=== PATIENT | female | born 1940 | race Caucasian/White ===

== ENCOUNTER 2016-07-24 17:50 | Inpatient (IN) | payer MEDICARE, BC ==
[~2016-07-24] VITALS: Ht 160 cm; Wt 59.9 kg
[2016-07-24] MEDS ORDERED: DEXTROSE 50% WATER 50ML SYRINGE IV PRN ×2 (19:00→20:15)
[2016-07-24 20:00] VITALS: BP 123/52
[2016-07-24] MEDS: ROPINIROLE HCL 1MG TABLET PO SCH (20:19)
[2016-07-24] MEDS: HYDROCORTISONE 2.5% RECTAL CREAM 30GM PR SCH (21:00)
[2016-07-24] MEDS: ONDANSETRON HCL 4MG TABLET PO PRN (21:37)
[2016-07-24] MEDS: GABAPENTIN 300MG CAPSULE PO SCH (21:53)
[2016-07-24] MEDS: CARVEDILOL 3.125 MG TABLET PO SCH (21:53)
[2016-07-24] MEDS: ATORVASTATIN CALCIUM 40MG TABLET PO SCH (21:54)
[2016-07-24] MEDS: BLOOD SUGAR DIAGNOSTIC STRIP TEST SCH (21:55)
[2016-07-24] MEDS: TEMAZEPAM 15MG CAPSULE PO PRN (21:56)
[2016-07-24] MEDS: INSULIN LISPRO 100 UNITS/ML SUBCUT SCH (22:12)
[2016-07-25 05:57] LABS: BASOPHILS % 0.4 % (0.0-2.0); EOSINOPHILS % 1.4 % (0.0-5.0); HEMATOCRIT. 31.8 % (36.0-48.0); HEMOGLOBIN. 10.7 g/dL (12.0-16.0); LYMPHOCYTES % 18.3 % (20.0-50.0); MEAN CORPUSCULAR HEMOGLOBIN 33.1 pg (28.0-32.0); MEAN CORPUSCULAR VOLUME 98.3 fL (81.0-99.0); MEAN PLATELET VOLUME 9.7 fl (7.4-10.4); MONOCYTES % 10.8 % (2.0-8.0); NEUTROPHILS % 69.1 % (40.0-76.0); PLATELET 152 x1000/uL (130-400); RED BLOOD CELL COUNT 3.23 mill/uL (4.2-5.4)
[2016-07-25] MEDS: PANTOPRAZOLE 40MG DR TABLET PO SCH (07:15)
[2016-07-25] MEDS: BLOOD SUGAR DIAGNOSTIC STRIP TEST SCH ×4 (07:17→21:09)
[2016-07-25] MEDS: INSULIN LISPRO 100 UNITS/ML SUBCUT SCH ×4 (07:22→20:52)
[2016-07-25 08:00] VITALS: BP 90/58
[2016-07-25] MEDS: DOCUSATE SODIUM 100MG CAPSULE PO SCH ×2 (09:00→16:27)
[2016-07-25] MEDS: CARVEDILOL 3.125 MG TABLET PO SCH ×2 (09:00→21:00)
[2016-07-25 09:04] LABS: VITAMIN B12 SERUM 1900 pg/mL (211-911)
[2016-07-25] MEDS: CLOPIDOGREL 75MG TABLET PO SCH (09:31)
[2016-07-25] MEDS: DULOXETINE HCL 60MG DR CAPSULE PO SCH (09:31)
[2016-07-25] MEDS: ASPIRIN 81MG TABLET PO SCH (09:31)
[2016-07-25] MEDS: HEPARIN 5000 UNITS/ML VIAL SUBCUT SCH ×2 (09:34→20:45)
[2016-07-25] MEDS ORDERED: GLIMEPIRIDE 1MG TABLET PO SCH (10:00)
[2016-07-25] MEDS: HYDROCORTISONE 2.5% RECTAL CREAM 30GM PR SCH ×2 (10:43→20:53)
[2016-07-25] MEDS: HYDROCODONE/ACETAMINOPHEN 5/325MG TABLET PO PRN (13:10)
[2016-07-25 14:25] VITALS: BP_SYST 100; BP_SYST 113; BP_SYST 117; BP_DIAS 65; BP_DIAS 78
[2016-07-25] MEDS: ONDANSETRON HCL 4MG TABLET PO PRN (18:59)
[2016-07-25] MEDS: ROPINIROLE HCL 1MG TABLET PO SCH (19:49)
[2016-07-25 20:00] VITALS: BP_SYST 103; BP_SYST 93; BP_DIAS 62; BP_DIAS 74
[2016-07-25] MEDS ORDERED: CALC-769 PO (20:25)
[2016-07-25] MEDS ORDERED: ALEN70TA3 PO (20:25)
[2016-07-25] MEDS ORDERED: CLOP75TA33 PO (20:25)
[2016-07-25] MEDS ORDERED: GABA-290 PO (20:25)
[2016-07-25] MEDS ORDERED: SPIR25TA4 PO (20:25)
[2016-07-25] MEDS ORDERED: MULT1TAB11 PO (20:25)
[2016-07-25] MEDS ORDERED: BACL-141 PO (20:25)
[2016-07-25] MEDS ORDERED: LISI-186 PO (20:25)
[2016-07-25] MEDS ORDERED: FURO-151 PO (20:25)
[2016-07-25] MEDS ORDERED: COR6 PO (20:25)
[2016-07-25] MEDS ORDERED: DULO60CA44 PO (20:25)
[2016-07-25] MEDS ORDERED: METF500T4 PO (20:25)
[2016-07-25] MEDS ORDERED: ASPI-1159 PO (20:25)
[2016-07-25] MEDS ORDERED: SODI15OR4 MT (20:25)
[2016-07-25] MEDS ORDERED: ATOR80TA PO (20:25)
[2016-07-25] MEDS ORDERED: HYDR-523 PO (20:25)
[2016-07-25] MEDS ORDERED: TRAM50TA3 PO (20:25)
[2016-07-25] MEDS: MAGNESIUM/ALUMINUM HYDROXIDE/SIMETHICONE 30ML UDC PO PRN (20:43)
[2016-07-25] MEDS: GABAPENTIN 300MG CAPSULE PO SCH (20:44)
[2016-07-25] MEDS: ATORVASTATIN CALCIUM 40MG TABLET PO SCH (20:45)
[2016-07-26] MEDS: TEMAZEPAM 15MG CAPSULE PO PRN (00:24)
[2016-07-26] MEDS: ACETAMINOPHEN 650MG/20.3ML UDC PO PRN ×2 (04:31→13:42)
[2016-07-26] MEDS: BLOOD SUGAR DIAGNOSTIC STRIP TEST SCH ×4 (06:29→21:28)
[2016-07-26] MEDS: GLIMEPIRIDE 1MG TABLET PO SCH (06:30)
[2016-07-26] MEDS: PANTOPRAZOLE 40MG DR TABLET PO SCH (06:30)
[2016-07-26] MEDS: INSULIN LISPRO 100 UNITS/ML SUBCUT SCH ×4 (06:34→21:17)
[2016-07-26 08:00] VITALS: BP 102/64
[2016-07-26] MEDS: CARVEDILOL 3.125 MG TABLET PO SCH ×2 (08:47→21:00)
[2016-07-26] MEDS: DOCUSATE SODIUM 100MG CAPSULE PO SCH (08:48)
[2016-07-26] MEDS: ASPIRIN 81MG TABLET PO SCH (08:48)
[2016-07-26] MEDS: DULOXETINE HCL 60MG DR CAPSULE PO SCH (08:48)
[2016-07-26] MEDS: CLOPIDOGREL 75MG TABLET PO SCH (08:48)
[2016-07-26] MEDS: HEPARIN 5000 UNITS/ML VIAL SUBCUT SCH ×2 (08:49→21:16)
[2016-07-26] MEDS: HYDROCORTISONE 2.5% RECTAL CREAM 30GM PR SCH ×2 (09:00→21:14)
[2016-07-26] MEDS ORDERED: LACTULOSE 20G/30ML UDC PO PRN (09:45)
[2016-07-26] MEDS: DOCUSATE SODIUM 250MG CAPSULE PO SCH (10:39)
[2016-07-26] MEDS: FUROSEMIDE 40MG TABLET PO SCH (10:39)
[2016-07-26] MEDS: SPIRONOLACTONE 25MG TABLET PO SCH (10:40)
[2016-07-26] MEDS: ONDANSETRON HCL 4MG TABLET PO PRN (11:29)
[2016-07-26] MEDS: ALPRAZOLAM 0.5 MG TABLET PO PRN (12:38)
[2016-07-26] MEDS: HYDROCODONE/ACETAMINOPHEN 5/325MG TABLET PO PRN (14:46)
[2016-07-26 18:30] VITALS: BP 94/59
[2016-07-26] MEDS: TRAMADOL 50MG TABLET PO PRN (18:34)
[2016-07-26] MEDS: ROPINIROLE HCL 1MG TABLET PO SCH (19:57)
[2016-07-26 20:00] VITALS: BP_SYST 101; BP_SYST 139; BP_DIAS 66; BP_DIAS 92
[2016-07-26] MEDS ORDERED: TEMAZEPAM 15MG CAPSULE PO PRN (21:00)
[2016-07-26] MEDS: GABAPENTIN 300MG CAPSULE PO SCH (21:15)
[2016-07-26] MEDS: ATORVASTATIN CALCIUM 40MG TABLET PO SCH (21:15)
[2016-07-27] MEDS: GLIMEPIRIDE 1MG TABLET PO SCH (06:16)
[2016-07-27] MEDS: BLOOD SUGAR DIAGNOSTIC STRIP TEST SCH ×4 (06:34→21:38)
[2016-07-27] MEDS: INSULIN LISPRO 100 UNITS/ML SUBCUT SCH ×4 (06:34→21:51)
[2016-07-27 08:00] VITALS: BP 91/63
[2016-07-27] MEDS: DULOXETINE HCL 60MG DR CAPSULE PO SCH (08:42)
[2016-07-27] MEDS: SPIRONOLACTONE 25MG TABLET PO SCH (08:42)
[2016-07-27] MEDS: DOCUSATE SODIUM 250MG CAPSULE PO SCH (08:42)
[2016-07-27] MEDS: FUROSEMIDE 40MG TABLET PO SCH (08:42)
[2016-07-27] MEDS: FAMOTIDINE 20MG/2ML VIAL IV SCH (08:43)
[2016-07-27] MEDS: CARVEDILOL 3.125 MG TABLET PO SCH ×2 (08:44→21:00)
[2016-07-27] MEDS: HYDROCORTISONE 2.5% RECTAL CREAM 30GM PR SCH ×2 (08:44→21:38)
[2016-07-27] MEDS: HEPARIN 5000 UNITS/ML VIAL SUBCUT SCH ×2 (08:44→21:38)
[2016-07-27] MEDS: MAGNESIUM/ALUMINUM HYDROXIDE/SIMETHICONE 30ML UDC PO PRN (09:41)
[2016-07-27] MEDS: ONDANSETRON HCL 4MG TABLET PO PRN (11:07)
[2016-07-27] MEDS: IPRATROPIUM/ALBUTEROL 0.5-3(2.5)MG/3ML NEB HHN SCH ×2 (14:52→20:42)
[2016-07-27 17:02] VITALS: BP 88/62
[2016-07-27] MEDS: TRAMADOL 50MG TABLET PO PRN (17:10)
[2016-07-27] MEDS: ALPRAZOLAM 0.5 MG TABLET PO PRN (17:51)
[2016-07-27] MEDS: ROPINIROLE HCL 1MG TABLET PO SCH (19:49)
[2016-07-27 20:47] VITALS: BP 90/60
[2016-07-27] MEDS: GABAPENTIN 300MG CAPSULE PO SCH (21:37)
[2016-07-27] MEDS: ATORVASTATIN CALCIUM 40MG TABLET PO SCH (21:37)
[2016-07-28] MEDS: IPRATROPIUM/ALBUTEROL 0.5-3(2.5)MG/3ML NEB HHN SCH ×4 (00:49→21:16)
[2016-07-28] MEDS: GLIMEPIRIDE 1MG TABLET PO SCH (06:01)
[2016-07-28] MEDS: BLOOD SUGAR DIAGNOSTIC STRIP TEST SCH ×4 (06:06→21:25)
[2016-07-28] MEDS: INSULIN LISPRO 100 UNITS/ML SUBCUT SCH ×4 (06:06→21:40)
[2016-07-28 08:00] VITALS: BP 93/51
[2016-07-28] MEDS: CARVEDILOL 3.125 MG TABLET PO SCH ×2 (09:00→21:00)
[2016-07-28] MEDS: SPIRONOLACTONE 25MG TABLET PO SCH (09:00)
[2016-07-28] MEDS: FAMOTIDINE 20MG/2ML VIAL IV SCH (09:26)
[2016-07-28] MEDS: HEPARIN 5000 UNITS/ML VIAL SUBCUT SCH ×2 (09:27→21:25)
[2016-07-28] MEDS: HYDROCORTISONE 2.5% RECTAL CREAM 30GM PR SCH ×2 (09:27→21:40)
[2016-07-28] MEDS: FUROSEMIDE 40MG TABLET PO SCH (09:28)
[2016-07-28] MEDS: DULOXETINE HCL 60MG DR CAPSULE PO SCH (09:28)
[2016-07-28] MEDS: DOCUSATE SODIUM 250MG CAPSULE PO SCH (09:28)
[2016-07-28 09:30] VITALS: BP_SYST 80; BP_SYST 93; BP_SYST 95; BP_DIAS 57; BP_DIAS 62; BP_DIAS 66
[2016-07-28] MEDS ORDERED: IPRATROPIUM/ALBUTEROL 0.5-3(2.5)MG/3ML NEB HHN PRN (10:00)
[2016-07-28] MEDS ORDERED: ACETAMINOPHEN 325MG TABLET PO PRN (10:00)
[2016-07-28] MEDS: ONDANSETRON HCL 4MG TABLET PO PRN (11:02)
[2016-07-28] MEDS: ONDANSETRON HCL 4MG/2ML VIAL IV PRN (14:16)
[2016-07-28] MEDS: TRAMADOL 50MG TABLET PO PRN (15:11)
[2016-07-28] MEDS: ALPRAZOLAM 0.5 MG TABLET PO PRN (17:24)
[2016-07-28] MEDS ORDERED: TEMAZEPAM 15MG CAPSULE PO PRN (19:15)
[2016-07-28 20:00] VITALS: BP 88/58
[2016-07-28] MEDS: ROPINIROLE HCL 1MG TABLET PO SCH (20:11)
[2016-07-28] MEDS: GABAPENTIN 300MG CAPSULE PO SCH (21:24)
[2016-07-28] MEDS: ATORVASTATIN CALCIUM 40MG TABLET PO SCH (21:24)
[2016-07-28] MEDS ORDERED: HYDROCODONE/ACETAMINOPHEN 5/325MG TABLET PO PRN (23:00)
[2016-07-29] MEDS: IPRATROPIUM/ALBUTEROL 0.5-3(2.5)MG/3ML NEB HHN SCH ×3 (02:09→11:36)
[2016-07-29] MEDS: GLIMEPIRIDE 1MG TABLET PO SCH (06:28)
[2016-07-29] MEDS: BLOOD SUGAR DIAGNOSTIC STRIP TEST SCH ×3 (06:28→17:00)
[2016-07-29] MEDS: INSULIN LISPRO 100 UNITS/ML SUBCUT SCH ×3 (06:33→17:00)
[2016-07-29 08:00] VITALS: BP 71/48
[2016-07-29] MEDS: DULOXETINE HCL 60MG DR CAPSULE PO SCH (08:48)
[2016-07-29] MEDS: FAMOTIDINE 20MG/2ML VIAL IV SCH (08:50)
[2016-07-29] MEDS: DOCUSATE SODIUM 250MG CAPSULE PO SCH (08:50)
[2016-07-29] MEDS: MIDODRINE HCL 5MG TABLET PO SCH ×3 (08:50→18:31)
[2016-07-29] MEDS: CARVEDILOL 3.125 MG TABLET PO SCH (08:51)
[2016-07-29] MEDS: SPIRONOLACTONE 25MG TABLET PO SCH (08:51)
[2016-07-29] MEDS: HEPARIN 5000 UNITS/ML VIAL SUBCUT SCH ×2 (08:52→10:19)
[2016-07-29] MEDS: FUROSEMIDE 40MG TABLET PO SCH (08:52)
[2016-07-29] MEDS: HYDROCORTISONE 2.5% RECTAL CREAM 30GM PR SCH (08:53)
[2016-07-29] MEDS ORDERED: ALBUMIN HUMAN 25GM/100ML (25%) IV SCH (10:00)
[2016-07-29 10:15] LABS: BASOPHILS % 0.5 % (0.0-2.0); EOSINOPHILS % 0.3 % (0.0-5.0); HEMATOCRIT. 34.6 % (36.0-48.0); HEMOGLOBIN. 11.3 g/dL (12.0-16.0); LYMPHOCYTES % 9.6 % (20.0-50.0); MEAN CORPUSCULAR HEMOGLOBIN 33.2 pg (28.0-32.0); MEAN CORPUSCULAR VOLUME 102.2 fL (81.0-99.0); MEAN PLATELET VOLUME 9.9 fl (7.4-10.4); MONOCYTES % 10.3 % (2.0-8.0); NEUTROPHILS % 79.3 % (40.0-76.0); PLATELET 189 x1000/uL (130-400); RED BLOOD CELL COUNT 3.39 mill/uL (4.2-5.4); RED CELL DISTRIBUTION WIDTH 15.8 % (11.6-14.6)
[2016-07-29] MEDS: ONDANSETRON HCL 4MG/2ML VIAL IV PRN (12:04)
[2016-07-29 18:40] VITALS: BP 126/74
== END 2016-07-29 18:55 | disposition short-term general hospital (02) | DRG 291 ==
PROVIDERS: ADMIT Psychiatry & Neurology Neurology; ATTEND Internal Medicine Geriatric Medicine
DX: I13.0 Hypertensive heart and chronic kidney disease with heart failure and stage 1 through stage 4 chronic kidney disease, or unspecified chronic kidney disease (principal); I50.23 Acute on chronic systolic (congestive) heart failure; J98.11 Atelectasis; N17.9 Acute kidney failure, unspecified; I42.9 Cardiomyopathy, unspecified; N18.3 Chronic kidney disease, stage 3 (moderate); E11.22 Type 2 diabetes mellitus with diabetic chronic kidney disease; E11.42 Type 2 diabetes mellitus with diabetic polyneuropathy; E78.00 Pure hypercholesterolemia, unspecified; E78.5 Hyperlipidemia, unspecified; R13.10 Dysphagia, unspecified; M15.9 Polyosteoarthritis, unspecified; F48.8 Other specified nonpsychotic mental disorders; K52.9 Noninfective gastroenteritis and colitis, unspecified; R58 Hemorrhage, not elsewhere classified; R26.89 Other abnormalities of gait and mobility; I95.9 Hypotension, unspecified; D63.1 Anemia in chronic kidney disease; R29.6 Repeated falls; G25.3 Myoclonus; G25.81 Restless legs syndrome; I07.1 Rheumatic tricuspid insufficiency; I34.0 Nonrheumatic mitral (valve) insufficiency; I25.10 Atherosclerotic heart disease of native coronary artery without angina pectoris; M21.372 Foot drop, left foot; M81.0 Age-related osteoporosis without current pathological fracture; Z96.649 Presence of unspecified artificial hip joint; Z88.2 Allergy status to sulfonamides; Z95.1 Presence of aortocoronary bypass graft; Z87.81 Personal history of (healed) traumatic fracture
CPT/HCPCS: 36415; 71010; 80048; 82270; 82607; 82652; 82962; 83036; 83540; 83550; 84443; 85025; 85730; 93306; 93970; 94640; 94664; 97110; 97116; 97162; 97166; 97530; 97535; J1644; J1815; J2405; J3490; J7050; J7620; P9047; Q0162

== ENCOUNTER 2016-07-29 18:50 | Inpatient (IN) | payer MEDICARE, BC ==
[~2016-07-29] VITALS: Ht 160 cm; Wt 70.8 kg
[~2016-07-29 18:50] MED LIST: ALEN70TA3 PO; ASPI-1159 PO; ATOR80TA PO; BACL-141 PO; CALC-769 PO; CLOP75TA33 PO; COR6 PO; DULO60CA44 PO; FURO-151 PO; GABA-290 PO; HYDR-523 PO; LISI-186 PO; METF500T4 PO; MULT1TAB11 PO; SODI15OR4 MT; SPIR25TA4 PO; TRAM50TA3 PO
[2016-07-29] MEDS ORDERED: ROPINIROLE HCL 1MG TABLET PO SCH (20:00)
[2016-07-29] MEDS ORDERED: ALPRAZOLAM 0.5 MG TABLET PO PRN (21:00)
[2016-07-29] MEDS ORDERED: DEXTROSE 50% WATER 50ML SYRINGE IV PRN (21:00)
[2016-07-29] MEDS ORDERED: ATORVASTATIN CALCIUM 40MG TABLET PO SCH (21:00)
[2016-07-29] MEDS ORDERED: GABAPENTIN 300MG CAPSULE PO ONE (21:00)
[2016-07-29] MEDS ORDERED: IPRATROPIUM/ALBUTEROL 0.5-3(2.5)MG/3ML NEB HHN PRN (21:00)
[2016-07-29] MEDS ORDERED: ACETAMINOPHEN 325MG TABLET PO PRN (21:00)
[2016-07-29] MEDS ORDERED: HYDROCODONE/ACETAMINOPHEN 5/325MG TABLET PO PRN (21:00)
[2016-07-29] MEDS ORDERED: MIDODRINE HCL 5MG TABLET PO SCH (21:00)
[2016-07-29] MEDS ORDERED: DOCUSATE SODIUM 250MG CAPSULE PO ONE (21:00)
[2016-07-29] MEDS ORDERED: MAGNESIUM/ALUMINUM HYDROXIDE/SIMETHICONE 30ML UDC PO PRN (21:00)
[2016-07-29] MEDS ORDERED: CARVEDILOL 3.125 MG TABLET PO SCH (21:00)
[2016-07-29] MEDS ORDERED: LACTULOSE 20G/30ML UDC PO PRN (21:00)
[2016-07-29] MEDS: BLOOD SUGAR DIAGNOSTIC STRIP TEST SCH (21:00)
[2016-07-29] MEDS ORDERED: HEPARIN 5000 UNITS/ML VIAL SUBCUT SCH (21:30)
[2016-07-29] MEDS: ONDANSETRON HCL 4MG/2ML VIAL IV PRN (21:31)
[2016-07-29] MEDS ORDERED: GABAPENTIN 300MG CAPSULE PO SCH (22:00)
[2016-07-29] MEDS: INSULIN LISPRO 100 UNITS/ML SUBCUT SCH (22:13)
[2016-07-29 22:32] VITALS: BP 76/50
[2016-07-30] VITALS (25 sets, daily range): BP systolic 52–177; BP diastolic 29–114
[2016-07-30] MEDS: IPRATROPIUM/ALBUTEROL 0.5-3(2.5)MG/3ML NEB HHN SCH ×2 (01:20→08:56)
[2016-07-30] MEDS ORDERED: MIDODRINE HCL 5MG TABLET PO ONE (02:15)
[2016-07-30] MEDS ORDERED: FLUDROCORTISONE ACETATE 0.1MG TABLET PO NR (02:17)
[2016-07-30] MEDS: HYDROCORTISONE 2.5% RECTAL CREAM 30GM PR SCH ×2 (02:35→09:54)
[2016-07-30] MEDS: ONDANSETRON HCL 4MG/2ML VIAL IV PRN (04:37)
[2016-07-30] MEDS: BLOOD SUGAR DIAGNOSTIC STRIP TEST SCH (06:41)
[2016-07-30] MEDS: INSULIN LISPRO 100 UNITS/ML SUBCUT SCH (06:52)
[2016-07-30] MEDS ORDERED: CALCIUM CHLORIDE 1GM/10ML SYR IV ONE (07:20)
[2016-07-30] MEDS ORDERED: ATROPINE SULFATE 1MG/10ML SYR ONE (07:20)
[2016-07-30] MEDS ORDERED: MAGNESIUM SULFATE 4G IN WATER 100ML PREMIX IV ONE (07:20)
[2016-07-30] MEDS ORDERED: DEXTROSE 50% WATER 50ML SYRINGE IV ONE (07:20)
[2016-07-30] MEDS ORDERED: LIDOCAINE HCL 2% 5ML SYRINGE IV ONE (07:20)
[2016-07-30] MEDS ORDERED: AMIODARONE HCL 50MG/ML 3ML VIAL IV ONE (07:20)
[2016-07-30] MEDS ORDERED: GLIMEPIRIDE 1MG TABLET PO SCH (07:20)
[2016-07-30] MEDS ORDERED: DOPAMINE 400MG IN DEXT 5% 250ML PREMIX IV ONE (07:20)
[2016-07-30] MEDS ORDERED: EPINEPHRINE 0.1MG/ML (1:10,000) 10ML SYR ONE (07:20)
[2016-07-30] MEDS ORDERED: SODIUM BICARBONATE 7.5% 0.9 MEQ/ML 50ML SYR IV ONE (07:20)
[2016-07-30] MEDS ORDERED: NOREPINEPHRINE 8 MG in DEXT 5% WATER 242 ML IV PRN (08:00)
[2016-07-30] MEDS ORDERED: SODIUM CHLORIDE 0.9% 250 ML IV NR (08:15)
[2016-07-30 08:28] LABS: HEMATOCRIT. 35.1 % (36.0-48.0); HEMOGLOBIN. 11.3 g/dL (12.0-16.0); MEAN CORPUSCULAR HEMOGLOBIN 32.7 pg (28.0-32.0); MEAN CORPUSCULAR VOLUME 101.8 fL (81.0-99.0); MEAN PLATELET VOLUME 10.7 fl (7.4-10.4); PLATELET 192 x1000/uL (130-400); RED BLOOD CELL COUNT 3.45 mill/uL (4.2-5.4); RED CELL DISTRIBUTION WIDTH 16.4 % (11.6-14.6)
[2016-07-30] MEDS ORDERED: SODIUM CHLORIDE 0.9% 250 ML IV SCH ×2 (08:57→09:00)
[2016-07-30] MEDS ORDERED: DULOXETINE HCL 60MG DR CAPSULE PO SCH (09:00)
[2016-07-30] MEDS ORDERED: FUROSEMIDE 40MG TABLET PO SCH (09:00)
[2016-07-30] MEDS ORDERED: MIDODRINE HCL 5MG TABLET PO SCH (09:00)
[2016-07-30] MEDS ORDERED: FAMOTIDINE 20MG/2ML VIAL IV SCH (09:00)
[2016-07-30] MEDS ORDERED: PANTOPRAZOLE SODIUM 40 MG/VIAL IV SCH (09:00)
[2016-07-30] MEDS ORDERED: DOCUSATE SODIUM 250MG CAPSULE PO SCH (09:00)
[2016-07-30] MEDS ORDERED: ASPIRIN 81MG TABLET PO SCH (09:00)
[2016-07-30] MEDS ORDERED: DEXT 5%/0.9% NACL 1,000 ML IV SCH ×2 (09:08→09:15)
[2016-07-30] MEDS ORDERED: MORPHINE SULFATE 2 MG/ML CPJ (NOT FOR IM USE) IV PRN (09:10)
[2016-07-30] MEDS ORDERED: PIPERACILLIN/TAZ 3.375G PREMIX 50 ML IV SCH (09:15)
[2016-07-30 09:29] LABS: BG BASE EXCESS -13.6 mmol/L (-2.0-2.0); BG CARBOXYHEMOGLOBIN 0.6 % (0.5-1.5); BG DEOXYHEMOGLOBIN 3.5 % (0.0-5.0); BG FRACTION INSPIRED OXYGEN 32; BG METHEMOGLOBIN 0.3 % (0.0-1.5); BG OXYGEN SATURATION 96.5 % (92.0-98.5); BG OXYHEMOGLOBIN 95.6 % (94.0-97.0); BG PCO2 23.2 mmHg (35.0-45.0); BG PH 7.294 (7.350-7.450); BG PO2 101.7 mmHg (75.0-100.0); BG SAMPLE SITE RIGHT BRACHIAL; BG TOTAL HEMOGLOBIN 12.2 g/dL (12.0-18.0); BG VENT MODE NASAL CANNULA
[2016-07-30] MEDS ORDERED: SODIUM BICARBONATE 8.4% 1 MEQ/ML 50ML SYR IV NR ×2 (09:45→13:00)
[2016-07-30] MEDS ORDERED: SODIUM POLYSTYRENE SULFONATE 15 G/60 ML BOT PO NR (09:45)
[2016-07-30] MEDS ORDERED: LIDOCAINE 5% PATCH TOP SCH (10:00)
[2016-07-30] MEDS ORDERED: PIPERACILLIN/TAZ 2.25G PREMIX 50 ML IV SCH (10:00)
[2016-07-30] MEDS ORDERED: ALBUMIN HUMAN 25GM/100ML (25%) IV NR (10:00)
[2016-07-30] MEDS ORDERED: DOBUTAMINE 250MG PREMIX 250 ML IV PRN (11:15)
[2016-07-30 11:18] LABS: PLATELET ESTIMATE NORMAL
[2016-07-30] MEDS ORDERED: AMIODARONE HCL 50MG/ML 9ML VIAL IV ONE (12:00)
[2016-07-30] MEDS ORDERED: AMIODARONE HCL 900 MG in DEXT 5% WATER 500 ML IV PRN (12:00)
[2016-07-30 12:14] LABS: BG BASE EXCESS -18.4 mmol/L (-2.0-2.0); BG CARBOXYHEMOGLOBIN 0.3 % (0.5-1.5); BG DEOXYHEMOGLOBIN 3.6 % (0.0-5.0); BG FRACTION INSPIRED OXYGEN 100; BG HCO3 ACT 8.6 mmol/L (22.0-26.0); BG METHEMOGLOBIN 0.3 % (0.0-1.5); BG OXYGEN SATURATION 96.4 % (92.0-98.5); BG OXYHEMOGLOBIN 95.8 % (94.0-97.0); BG PCO2 24.6 mmHg (35.0-45.0); BG PH 7.162 (7.350-7.450); BG PO2 115.1 mmHg (75.0-100.0); BG SAMPLE SITE A-LINE; BG TIDAL VOLUME(mL) 500 mL; BG VENT MODE VENT - A/C; BG VENT RATE 20 set
[2016-07-30 12:18] LABS: BASOPHILS % 0.2 % (0.0-2.0); HEMATOCRIT. 27.2 % (36.0-48.0); HEMOGLOBIN. 8.3 g/dL (12.0-16.0); LYMPHOCYTES % 10.1 % (20.0-50.0); MEAN CORPUSCULAR HEMOGLOBIN 33.2 pg (28.0-32.0); MEAN CORPUSCULAR VOLUME 109.1 fL (81.0-99.0); MONOCYTES % 0.6 % (2.0-8.0); NEUTROPHILS % 89.1 % (40.0-76.0); PLATELET 71 x1000/uL (130-400); RED BLOOD CELL COUNT 2.49 mill/uL (4.2-5.4); RED CELL DISTRIBUTION WIDTH 17.9 % (11.6-14.6)
[2016-07-30 12:39] LABS: INR 3.8; PROTHROMBIN TIME 39.5 sec
[2016-07-30 12:41] LABS: CREATINE KINASE MB FRACTION 7.4 ng/mL (0.5-3.6)
[2016-07-30 12:48] LABS: TROPONIN I 2.9 ng/mL (0.00-0.04)
[2016-07-30] MEDS ORDERED: CALCIUM GLUCONATE 1,000 MG in DEXT 5% WATER 100 ML IV SCH (13:00)
[2016-07-30] MEDS ORDERED: VANCOMYCIN 1500MG in DEXTROSE 5% WATER 250ML IV SCH (13:00)
[2016-07-30 14:59] LABS: PARTIAL THROMBOPLASTIN TIME 121.7 sec (24.0-34.0)
[2016-07-31] MEDS ORDERED: CLOPIDOGREL 75MG TABLET PO SCH (09:00)
== END 2016-07-30 12:37 | disposition expired | DRG 871 ==
LOC: 6WST 18:50 → CVICU 07-30 08:29
PROVIDERS: ADMIT Internal Medicine Geriatric Medicine; ATTEND Internal Medicine Geriatric Medicine
PROC: 5A1935Z Respiratory Ventilation, Less than 24 Consecutive Hours (ICD-10-PCS; principal; 2016-07-30)
PROC: 0BH17EZ Insertion of Endotracheal Airway into Trachea, Via Natural or Artificial Opening (ICD-10-PCS; 2016-07-30)
PROC: 5A12012 Performance of Cardiac Output, Single, Manual (ICD-10-PCS; 2016-07-30)
DX: A41.9 Sepsis, unspecified organism (principal); J96.00 Acute respiratory failure, unspecified whether with hypoxia or hypercapnia; I50.23 Acute on chronic systolic (congestive) heart failure; G93.41 Metabolic encephalopathy; I21.3 ST elevation (STEMI) myocardial infarction of unspecified site; J69.0 Pneumonitis due to inhalation of food and vomit; N17.0 Acute kidney failure with tubular necrosis; I13.0 Hypertensive heart and chronic kidney disease with heart failure and stage 1 through stage 4 chronic kidney disease, or unspecified chronic kidney disease; D68.9 Coagulation defect, unspecified; E44.0 Moderate protein-calorie malnutrition; I42.9 Cardiomyopathy, unspecified; B17.9 Acute viral hepatitis, unspecified; D63.1 Anemia in chronic kidney disease; I46.9 Cardiac arrest, cause unspecified; E11.22 Type 2 diabetes mellitus with diabetic chronic kidney disease; D53.9 Nutritional anemia, unspecified; E11.42 Type 2 diabetes mellitus with diabetic polyneuropathy; E11.59 Type 2 diabetes mellitus with other circulatory complications; E78.5 Hyperlipidemia, unspecified; E83.52 Hypercalcemia; E87.5 Hyperkalemia; I25.10 Atherosclerotic heart disease of native coronary artery without angina pectoris; N18.9 Chronic kidney disease, unspecified; Z88.2 Allergy status to sulfonamides; Z95.1 Presence of aortocoronary bypass graft; Z90.710 Acquired absence of both cervix and uterus; Z68.27 Body mass index [BMI] 27.0-27.9, adult; Z87.81 Personal history of (healed) traumatic fracture
CPT/HCPCS: 31500; 36415; 36600; 71010; 76604; 80048; 80076; 82375; 82550; 82553; 82805; 82962; 83605; 83735; 84484; 85025; 85610; 85730; 87040; 87077; 87086; 87186; 92950; 93005; 93306; 94002; 94640; C9113; J0171; J0282; J0461; J0610; J1265; J1815; J2405; J2543; J3370; J3475; J3490; J7040; J7042; J7060; J7620; P9047; A4315